=== PATIENT | female | born 1990 | race Caucasian/White ===

== ENCOUNTER 2016-12-02 22:00 | Emergency (ER) | payer OTHER ==
[2016-12-02 22:18] VITALS: BP 130/86; RESP 18; TEMP 98.2
[2016-12-02] MEDS ORDERED: ACET/COD 300 MG/30 MG STARTER PACK 6 TAB BTL PO STA (22:21)
--- NOTE | 2016-12-02 22:24 | ED ---
Animal Bite HPI - General Chief Complaint: Animal Bite Stated Complaint: Dog Bite Time Seen by Provider: 12/02/16 22:02 Source: patient, RN notes reviewed Mode of arrival: ambulatory Limitations: no limitations - History of Present Illness Initial Comments: 26-year-old female presents emergency Department chief complaint dog bite left thigh. Patient states his happened hours ago before she went to work. She states her small dog as she sees daily was walking by her own her and jumped up and bit her left thigh. Patient states that she did not believe there was no puncture wound she states her is just bruising noted. She states it is very sore and she tried some Aleve with no pain relief. Patient states that she has no other injuries. - Related Data Home Medications Medication Instructions Recorded Confirmed Biotin 2,500 mcg PO DAILY 12/02/16 12/02/16 Previous Rx's Medication Instructions Recorded Acetaminophen-Codeine 300-30mg 1 tab PO Q4H PRN #10 tablet 12/02/16 [Tylenol #3] Allergies Allergy/AdvReac Type Severity Reaction Status Date / Time sulfamethoxazole Allergy Rash/Hives, Verified 12/02/16 22:18 [From Bactrim] vomiting trimethoprim [From Bactrim] Allergy Rash/Hives, Verified 12/02/16 22:18 vomiting Review of Systems ROS Statement: Those systems with pertinent positive or pertinent negative responses have been documented in the HPI. ROS Other: All systems not noted in ROS Statement are negative. Past Medical History Past Medical History: Skin Disorder Additional Past Medical History / Comment(s): psoriasis, "lump left thigh" History of Any Multi-Drug Resistant Organisms: None Reported Past Surgical History: No Surgical Hx Reported Additional Past Surgical History / Comment(s): fatty tumor from leg removed, Past Anesthesia/Blood Transfusion Reactions: No Reported Reaction Past Psychological History: No Psychological Hx Reported Smoking Status: Never smoker Past Alcohol Use History: Occasional Past Drug Use History: None Reported - Past Family History Mother Family Medical History: No Reported History General Exam Limitations: no limitations General appearance: alert, in no apparent distress Respiratory exam: Present: normal lung sounds bilaterally. Absent: respiratory distress, wheezes, rales, rhonchi, stridor Cardiovascular Exam: Present: regular rate, normal rhythm, normal heart sounds. Absent: systolic murmur, diastolic murmur, rubs, gallop, clicks Back exam: Present: other (Left thigh there is to areas of ecchymosis noted and superficial red moran with no abrasions or breaks to the skin noted) Course Vital Signs 12/02/16 22:15 Temperature 98.2 F Pulse Rate 20 L Respiratory 18 Rate Blood Pressure 130/86 O2 Sat by Pulse 100 Oximetry Medical Decision Making - Medical Decision Making 26-year-old female presented emergency from for dog bite to left thigh. Patient has no open wounds. Patient does not need tetanus or rabies vaccines at this time. Disposition Clinical Impression: Dog bite Disposition: HOME SELF-CARE Condition: Stable Instructions: Animal Bite (ED) Additional Instructions: Please return to the Emergency Department if symptoms worsen or any other concerns. Prescriptions: Acetaminophen-Codeine 300-30mg [Tylenol #3] 1 tab PO Q4H PRN #10 tablet PRN Reason: pain Time of Disposition: 22:24
[2016-12-02 22:25] VITALS: PULSE 60
== END 2016-12-02 22:51 | disposition home or self-care (01) ==
LOC: EC 22:00
DX: S71.152A Open bite, left thigh, initial encounter (principal); Z79.899 Other long term (current) drug therapy; Z88.2 Allergy status to sulfonamides; W54.0XXA Bitten by dog, initial encounter; Y93.K1 Activity, walking an animal
CPT/HCPCS: 99283

== ENCOUNTER 2017-02-05 12:35 | Emergency (ER) | payer OTHER ==
[2017-02-05 13:32] LABS: Basophils % (A) 1 %; CH 31.1; CHCM 33.9; Eosinophils # (A) 0.3 k/uL (0-0.7); Eosinophils % (A) 3 %; HCT 40.6 % (34.0-46.0); HDW 2.12; HGB 13.3 gm/dL (11.4-16.0); Luc # (Auto) 0.15; Luc % (Auto) 2; Lymphocytes # (A) 1.7 k/uL (1.0-4.8); Lymphocytes % (A) 19 %; MCH 30.2 pg (25.0-35.0); MCHC 32.9 g/dL (31.0-37.0); Monocytes # (A) 0.5 k/uL (0-1.0); Monocytes % (A) 5 %; Neutrophils # (A) 6.5 k/uL (1.3-7.7); Neutrophils % (A) 71 %; RBC 4.42 m/uL (3.80-5.40); RDW 12.8 % (11.5-15.5); WBC 9.1 k/uL (3.8-10.6); WBC (Perox) 9.57
[2017-02-05 13:37] LABS: ALT 19 U/L (9-52); AST 35 U/L (14-36); Alkaline Phosphatase 41 U/L (38-126); Anion Gap 9 mmol/L; Blood Urea Nitrogen 10 mg/dL (7-17); Calcium 9.7 mg/dL (8.4-10.2); Carbon Dioxide 22 mmol/L (22-30); Chloride 110 mmol/L (98-107); Glucose 83 mg/dL (74-99); Non-African American GFR(MDRD) >60 (>60 ml/min/1.73 sqM); Sodium 141 mmol/L (137-145); Total Protein 7.1 g/dL (6.3-8.2)
[2017-02-05 13:38] LABS: INR 1.1 (<1.1); Prothrombin Time 10.9 sec (9.0-12.0)
[2017-02-05 13:54] LABS: HCG,Quantitative Serum 484.4 mIU/mL
--- NOTE | 2017-02-05 14:17 | ED ---
Extremity Problem HPI - General Chief complaint: Extremity Problem,Nontraumatic Stated complaint: Bruises on Legs Time Seen by Provider: 02/05/17 12:58 Source: patient Mode of arrival: ambulatory Limitations: no limitations - History of Present Illness Initial comments: Patient is a 26-year-old female presenting to the emergency department with complaints of bilateral leg bruising over the last 2 weeks and achiness from her knees down to her feet. Patient states she has a history of chronic back pain and has been taking Aleve for the last 6 months on a daily basis. Patient states that she stopped taking Aleve approximately 10 days ago. Patient states she felt lightheaded last week not today. Patient denies chills, fevers, nausea, vomiting, shortness of breath, chest pain, abdominal pain, dysuria, hematuria, urgency, melena, hematochezia. Patient denies trauma or injury. Patient denies any other medications. Patient denies recent illness. Patient denies recent antibiotic use. Patient's last menstrual period was January 05. - Related Data Home Medications Medication Instructions Recorded Confirmed Biotin 2,500 mcg PO DAILY 12/02/16 12/02/16 Previous Rx's Medication Instructions Recorded Acetaminophen-Codeine 300-30mg 1 tab PO Q4H PRN #10 tablet 12/02/16 [Tylenol #3] Koz-Apgz-Xbybd Acid 1 cap PO DAILY #30 cap 02/05/17 [-U Capsule (formulary)] Allergies Allergy/AdvReac Type Severity Reaction Status Date / Time sulfamethoxazole Allergy Rash/Hives, Verified 02/05/17 12:55 [From Bactrim] vomiting trimethoprim [From Bactrim] Allergy Rash/Hives, Verified 02/05/17 12:55 vomiting Review of Systems ROS Statement: Those systems with pertinent positive or pertinent negative responses have been documented in the HPI. ROS Other: All systems not noted in ROS Statement are negative. Past Medical History Past Medical History: Skin Disorder Additional Past Medical History / Comment(s): psoriasis, "lump left thigh" History of Any Multi-Drug Resistant Organisms: None Reported Past Surgical History: No Surgical Hx Reported Additional Past Surgical History / Comment(s): fatty tumor from leg removed, Past Anesthesia/Blood Transfusion Reactions: No Reported Reaction Past Psychological History: No Psychological Hx Reported Smoking Status: Never smoker Past Alcohol Use History: Occasional Past Drug Use History: None Reported - Past Family History Mother Family Medical History: No Reported History General Exam - General Exam Comments Initial Comments: GENERAL: Pt awake and alert, well-appearing, well-nourished, and in no acute distress. HEAD: Atraumatic, normocephalic. EYES: Pupils equal, round, and reactive to light, extraocular movements intact, sclera anicteric, conjunctiva are normal. ENT: Oropharynx clear without exudates. Moist mucous membranes. Tongue smooth, pink, no lesions, protrudes in midline. NECK:Normal range of motion, supple without lymphadenopathy or JVD. LUNGS: Breath sounds clear to auscultation bilaterally. No wheezes, rales, or rhonchi. HEART: Heart S1, S2, no S3 or S4. Regular rate and rhythm. No murmurs, rubs or gallops. ABDOMEN: Soft, nontender, nondistended, normoactive bowel sounds. No guarding, no rebound. No masses or organomegaly appreciated. MUSCULOSKELETAL: Normal ROM, no tenderness. Strength 5/5. EXTREMITIES: 2+ peripheral pulses. No edema, clubbing or cyanosis. No calf tenderness. NEUROLOGICAL: Pt oriented x 3. Cranial nerves II through XII grossly intact. Strength and sensation grossly intact. PSYCH: Normal mood, normal affect. SKIN: Warm, dry, intact. Multiple ecchymotic areas to bilateral lower extremities, old appearing. Limitations: no limitations Course Vital Signs 02/05/17 12:53 Temperature 98.9 F Pulse Rate 68 Respiratory 20 Rate Blood Pressure 109/61 O2 Sat by Pulse 99 Oximetry Medical Decision Making - Medical Decision Making Positive . Lab work with no evidence of abnormalities. Patient instructed to follow-up with [facility] and establish primary care physician. Patient instructed to return to the emergency department with any new or worsening symptoms. Patient agrees with treatment plan. Discharge instructions and return parameters reviewed. - Lab Data Result diagrams: 02/05/17 13:15 02/05/17 13:15 Lab Results 02/05/17 02/05/17 02/05/17 Range/Units 13:15 13:15 13:15 WBC 9.1 (3.8-10.6) k/uL RBC 4.42 (3.80-5.40) m/uL Hgb 13.3 (11.4-16.0) gm/dL Hct 40.6 (34.0-46.0) % MCV 92.0 (80.0-100.0) fL MCH 30.2 (25.0-35.0) pg MCHC 32.9 (31.0-37.0) g/dL RDW 12.8 (11.5-15.5) % Plt Count 207 (150-450) k/uL Neutrophils % 71 % Lymphocytes % 19 % Monocytes % 5 % Eosinophils % 3 % Basophils % 1 % Neutrophils # 6.5 (1.3-7.7) k/uL Lymphocytes # 1.7 (1.0-4.8) k/uL Monocytes # 0.5 (0-1.0) k/uL Eosinophils # 0.3 (0-0.7) k/uL Basophils # 0.0 (0-0.2) k/uL PT 10.9 (9.0-12.0) sec INR 1.1 (<1.1) Sodium 141 (137-145) mmol/L Potassium 4.0 (3.5-5.1) mmol/L Chloride 110 H (98-107) mmol/L Carbon Dioxide 22 (22-30) mmol/L Anion Gap 9 mmol/L BUN 10 (7-17) mg/dL Creatinine 0.61 (0.52-1.04) mg/dL Est GFR (MDRD) Af Amer >60 (>60 ml/min/1.73 sqM) Est GFR (MDRD) Non-Af >60 (>60 ml/min/1.73 sqM) Glucose 83 (74-99) mg/dL Calcium 9.7 (8.4-10.2) mg/dL Total Bilirubin 1.0 (0.2-1.3) mg/dL AST 35 (14-36) U/L ALT 19 (9-52) U/L Alkaline Phosphatase 41 (38-126) U/L Total Protein 7.1 (6.3-8.2) g/dL Albumin 4.2 (3.5-5.0) g/dL HCG, Quant 484.4 mIU/mL Disposition Clinical Impression: Disposition: HOME SELF-CARE Condition: Good Instructions: (ED) Additional Instructions: Stop Aleve. May take Tylenol as needed for back pain. Follow-up with Dr. Kuester for [facility]. Please return to the emergency department with any new or worsening symptoms. Prescriptions: Csn-Obeb-Vwyqm Acid [-U Capsule (formulary)] 1 cap PO DAILY # 30 cap Referrals: None,Stated [Primary Care Provider] - 1-2 days Time of Disposition: 14:17
[2017-02-05 14:31] VITALS: BP 110/70; PULSE 62; RESP 18; TEMP 98.7
== END 2017-02-05 14:30 | disposition home or self-care (01) ==
LOC: EC 12:35
DX: O99.89 Other specified diseases and conditions complicating pregnancy, childbirth and the puerperium (principal); G89.29 Other chronic pain; M54.9 Dorsalgia, unspecified; Z79.899 Other long term (current) drug therapy; Z88.2 Allergy status to sulfonamides; Z3A.00 Weeks of gestation of pregnancy not specified
CPT/HCPCS: 36415; 80053; 84702; 85025; 85610; 99283

== ENCOUNTER → 2017-04-24 | Outpatient (CLI) | payer OTHER ==
[2017-04-24 15:46] LABS: CH 31.5; CHCM 34.9; HCT 31.9 % (34.0-46.0); HDW 2.24; HGB 10.9 gm/dL (11.4-16.0); MCH 31.1 pg (25.0-35.0); MCHC 34.3 g/dL (31.0-37.0); MCV 90.6 fL (80.0-100.0); Mean Platelet Volume 7.4; RBC 3.52 m/uL (3.80-5.40); RDW 12.7 % (11.5-15.5)
[2017-04-24 15:52] LABS: Glucose 89 mg/dL (74-99); Non-African American GFR(MDRD) >60 (>60 ml/min/1.73 sqM)
[2017-04-24 16:23] LABS: Hepatitis B Surface Ag Index 0.05
[2017-04-25 01:28] LABS: Treponemal Ab Non-Reactive (Non-Reactive)
[2017-04-25 04:46] LABS: Toxoplasma Antibody (IgG) <3.0 IU/mL (<7.2)
== END | disposition home or self-care (01) ==
LOC: LABWHC1 14:50
PROVIDERS: ATTEND Obstetrics & Gynecology
DX: O26.811 Pregnancy related exhaustion and fatigue, first trimester (principal); Z3A.00 Weeks of gestation of pregnancy not specified
CPT/HCPCS: 36415; 82565; 82947; 85027; 86762; 86777; 86778; 86780; 86850; 86900; 86901; 87340; 87390

== ENCOUNTER → 2017-05-25 | Outpatient (CLI) | payer OTHER ==
[2017-05-26 09:16] LABS: Alpha Fetoprotein 53.6 ng/mL; B-HCG (M.O.M.) 0.79; Gestational Age (days) 1; Human Chorionic Gonadotropin 19.8 IU/mL; Inhibin A (M.O.M.) 1.62; Interpretation SeeBelow; Maternal Age at EDD (Yrs) 27; Smoker No; Unconjugated Estriol (M.O.M.) 0.54
== END | disposition home or self-care (01) ==
LOC: LABWHC1 09:50
PROVIDERS: ATTEND Obstetrics & Gynecology
DX: Z34.82 Encounter for supervision of other normal pregnancy, second trimester (principal)
CPT/HCPCS: 36415; 82105; 82677; 84702; 86336

== ENCOUNTER 2017-10-10 06:05 | Inpatient (IN) | payer OTHER ==
[2017-10-10] MEDS ORDERED: METHYLERGONOVINE 0.2 MG/ML 1 ML AMP IM PRN (06:20)
[2017-10-10] MEDS ORDERED: LIDOCAINE 1% (PF) 10 MG/ML (30 ML SDV) SQ PRN (06:20)
[2017-10-10] MEDS ORDERED: OXYTOCIN 10 UNIT/ML 1 ML VIAL IM PRN (06:20)
[2017-10-10] MEDS ORDERED: TERBUTALINE 1 MG/ML VIAL SQ PRN (06:20)
[2017-10-10] MEDS ORDERED: CARBOPROST TROMETHAMINE 250 MCG/ML 1 ML AMP IM PRN (06:20)
[2017-10-10] MEDS: LACTATED RINGERS 1,000 ML IV SCH ×2 (06:27→11:23)
[2017-10-10] MEDS ORDERED: OXYTOCIN 20 UNITS/1000 ML NS 1,000 ML IV SCH (06:30)
[2017-10-10 06:52] LABS: HCT 33.6 % (34.0-46.0); HGB 11.1 gm/dL (11.4-16.0); MCH 30.3 pg (25.0-35.0); MCHC 33.2 g/dL (31.0-37.0); MCV 91.3 fL (80.0-100.0); Mean Platelet Volume 7.4; Platelet Count 157 k/uL (150-450); RBC 3.68 m/uL (3.80-5.40); RDW 12.7 % (11.5-15.5); WBC 17.3 k/uL (3.8-10.6)
[2017-10-10 07:37] LABS: Band Neutrophils % 2 %; Eosinophils # (M) 0.35 k/uL (0-0.7); Lymphocytes # (M) 1.38 k/uL (1.0-4.8); Metamyelocytes # (M) 0.17 k/uL (0); Metamyelocytes % 1 %; Monocytes # (M) 1.04 k/uL (0-1.0); Myelocytes # (M) 0.35 k/uL (0); Myelocytes % 2 %; Neutrophils % (M) 81 %; Nucleated Red Blood Cells 0 /100 WBC (0-0); Total Cells Counted 200
[2017-10-10 07:40] LABS: Anisocytosis (M) Present; Poikilocytosis (M) Present; Polychromasia Present
[2017-10-10] MEDS ORDERED: BUTORPHANOL 1 MG/ML 1 ML VIAL IV PRN (09:07)
[2017-10-10] MEDS ORDERED: SODIUM CHLORIDE 0.9% 100 ML BAG ONE (11:07)
[2017-10-10] MEDS ORDERED: fentaNYL (PF) 50 MCG/ML 5 ML AMP ONE (11:07)
[2017-10-10] MEDS ORDERED: BUPIVACAINE (PF) 0.25% 30 ML VIAL ONE (11:07)
[2017-10-10] MEDS ORDERED: BUPIVACAINE (PF) 0.25% 25 ML, fentaNYL (PF) 200 MCG in SODIUM CHLORIDE 0.9% 71 ML EPIDURAL ONE (11:22)
[2017-10-10] MEDS ORDERED: diphenhydrAMINE 50 MG/ML 1 ML VIAL IVP PRN ×2 (17:37)
[2017-10-10] MEDS ORDERED: WITCH HAZEL 1 EACH MED..PAD TOPICAL PRN (17:37)
[2017-10-10] MEDS ORDERED: diphenhydrAMINE 50 MG CAP PO PRN (17:37)
[2017-10-10] MEDS ORDERED: SIMETHICONE 80 MG CHEWABLE PO PRN (17:37)
[2017-10-10] MEDS ORDERED: BENZOCAINE/MENTHOL SPRAY 1 GM/SPRAY AEROSOL TOPICAL PRN (17:37)
[2017-10-10] MEDS ORDERED: diphenhydrAMINE 25 MG CAP PO PRN (17:37)
[2017-10-10] MEDS ORDERED: ZOLPIDEM 5 MG TAB PO PRN (17:37)
[2017-10-10] MEDS ORDERED: IBUPROFEN 600 MG TAB PO PRN (17:37)
[2017-10-10] MEDS ORDERED: Acetaminophen-Codeine 300-30mg TAB PO PRN ×2 (17:37)
[2017-10-10] MEDS: ACETAMINOPHEN TAB 325 MG TAB PO PRN (17:44)
--- NOTE | 2017-10-10 18:07 | P.HPOB ---
History of Present Illness H&P Date: 10/10/17 Chief Complaint: Intrauterine at term: Induction of labor Patient is a 27-year-old at 39 weeks gestation arise for induction of labor. Her course has been generally unremarkable she is feeling well at this time. Pertinent labs did include A+ blood type Rh antibody negative, rubella immune, hepatitis B surface antigen RPR and HIV were all negative. She did pass her Glucola screen. On physical exam vital signs are stable and afebrile. Her regular, lungs clear, extremities without pain. Osteopathic exams unremarkable. She was dilated to 1/2 cm 80% effaced -3 station and artificial rupture membranes was performed with clear fluid noted. heart tones 140s and reactive. Assessment intrauterine at term. Plan expect spontaneous vaginal delivery. Past Medical History Past Medical History: Skin Disorder Additional Past Medical History / Comment(s): psoriasis, "lump left thigh" History of Any Multi-Drug Resistant Organisms: None Reported Past Surgical History: No Surgical Hx Reported Additional Past Surgical History / Comment(s): fatty tumor from leg removed, Past Anesthesia/Blood Transfusion Reactions: No Reported Reaction Past Psychological History: No Psychological Hx Reported Smoking Status: Never smoker Past Alcohol Use History: Occasional Past Drug Use History: None Reported - Past Family History Mother Family Medical History: No Reported History Medications and Allergies Home Medications Medication Instructions Recorded Confirmed Type Fjt-Fihz-Ueway Acid 1 cap PO DAILY #30 cap 02/05/17 10/10/17 Rx [-U Capsule (formulary)] Allergies Allergy/AdvReac Type Severity Reaction Status Date / Time sulfamethoxazole Allergy Rash/Hives, Verified 10/10/17 06:20 [From Bactrim] vomiting trimethoprim [From Bactrim] Allergy Rash/Hives, Verified 10/10/17 06:20 vomiting Exam Osteopathic Statement: *. No significant issues noted on an osteopathic structural exam other than those noted in the History and Physical/Consult. - Vital Signs Vital signs: Vital Signs Temp Pulse Resp BP Pulse Ox 10/10/17 16:00 98.7 F 84 16 113/67 10/10/17 14:27 98.1 F 97 18 105/65 10/10/17 13:57 100 17 115/66 10/10/17 13:27 86 18 106/61 10/10/17 13:12 97.8 F 88 17 108/68 99 10/10/17 12:57 82 18 101/55 10/10/17 12:42 86 18 101/55 10/10/17 12:27 102 H 18 108/53 99 10/10/17 06:22 97.0 F L 85 14 113/67 98 Intake and Output 10/10/17 10/10/17 10/10/17 06:59 14:59 22:59 Intake Total 17.65 Balance 17.65 Intake: Intake, IV Titration 17.65 Amount Oxytocin 20 Units/1000 ml 17.65 Ns 1,000 ml @ 1 MILLIUNIT/MIN 3 mls/hr IV .Q24H HEDY Rx#:[id number] Other: # Voids 0 1 Weight 57.606 kg Results Result Diagrams: 10/10/17 06:30 Abnormal Lab Results - Last 24 Hours (Table) 10/10/17 Range/Units 06:30 WBC 17.3 H (3.8-10.6) k/uL RBC 3.68 L (3.80-5.40) m/uL Hgb 11.1 L (11.4-16.0) gm/dL Hct 33.6 L (34.0-46.0) % Neutrophils # (Manual) 14.30 H (1.3-7.7) k/uL Monocytes # (Manual) 1.04 H (0-1.0) k/uL Metamyelocytes # (Man) 0.17 H (0) k/uL Myelocytes # (Manual) 0.35 H (0) k/uL
--- NOTE | 2017-10-10 18:08 | P.PROBDLV ---
Vaginal Delivery Note - . Vaginal Delivery Note: Patient progressed to complete and pushed with spontaneous vaginal delivery of a viable female over an intact perineum. Following delivery of the head anterior posterior shoulders were delivered with gentle downward upper traction followed by the remainder the baby. Baby was then placed on mother's abdomen where the mouth nares were bulb suctioned and the umbilical cord was allowed to pulsate for 30 seconds prior to clamping and cutting. Once this was accomplished nursery personnel was present to assume care. Placenta was then delivered intact and Pitocin was added to the IV. scores are 9 and 9 at one and 5 minutes respectively and the weight was 6 lbs. 12 oz. Both mother and baby are stable following delivery.
[2017-10-10] MEDS: SENNOSIDES-DOCUSATE SODIUM 1 EACH TAB PO SCH (21:36)
[2017-10-10 21:45] VITALS: RESP 18
[2017-10-11] MEDS: SENNOSIDES-DOCUSATE SODIUM 1 EACH TAB PO SCH (08:30)
[2017-10-11] MEDS: ACETAMINOPHEN TAB 325 MG TAB PO PRN (08:30)
[2017-10-11 08:53] VITALS: BP 106/71; PULSE 85; TEMP 98.5
--- NOTE | 2017-10-11 12:11 | P.DS ---
Providers Date of admission: 10/10/17 06:05 Expected date of discharge: 10/11/17 Attending physician: Angelito Rodriguez Primary care physician: Stated None Hospital Course: Patient is doing very well day 1. She is involuting, voiding, and she is tolerating her diet. She voices no complaints. Vital signs are stable and afebrile. Heart regular, lungs clear, extremities are without pain. She is stable for discharge and her is requesting same. She'll follow me in 6 weeks. Prescription for Motrin was sent to the pharmacy. All other questions are answered for her prior to her discharge and she is stable for discharge at this time. Patient Condition at Discharge: Good Plan - Discharge Summary New Discharge Prescriptions: New Ibuprofen [Motrin] 600 mg PO Q6HR PRN #30 tab PRN Reason: Pain No Action Gtv-Faxa-Ztyno Acid [-U Capsule (formulary)] 1 cap PO DAILY #30 cap Discharge Medication List Ztv-Kvee-Wfxow Acid [-U Capsule (formulary)] 1 cap PO DAILY # 30 cap 02/05/17 [Rx] Ibuprofen [Motrin] 600 mg PO Q6HR PRN #30 tab 10/11/17 [Rx] Follow up Appointment(s)/Referral(s): Aneglito Rodriguez DO [Doctor of Osteopathic Medicine] - 6 Weeks Activity/Diet/Wound Care/Special Instructions: No heavy lifting, limit stairs and driving and pelvic rest. If any high temperatures, heavy bleeding, or severe pain call my office Discharge Disposition: HOME SELF-CARE
== END 2017-10-11 13:44 | disposition home or self-care (01) | DRG 775 ==
LOC: 4FBP 06:05
PROVIDERS: ADMIT Obstetrics & Gynecology; ATTEND Obstetrics & Gynecology
PROC: 10E0XZZ Delivery of Products of Conception, External Approach (ICD-10-PCS; principal; 2017-10-10)
PROC: 10907ZC Drainage of Amniotic Fluid, Therapeutic from Products of Conception, Via Natural or Artificial Opening (ICD-10-PCS; 2017-10-10)
PROC: 3E0R3NZ Introduction of Analgesics, Hypnotics, Sedatives into Spinal Canal, Percutaneous Approach (ICD-10-PCS; 2017-10-10)
PROC: 00HU33Z Insertion of Infusion Device into Spinal Canal, Percutaneous Approach (ICD-10-PCS; 2017-10-10)
DX: O80 Encounter for full-term uncomplicated delivery (principal); Z37.0 Single live birth; Z3A.39 39 weeks gestation of pregnancy; Z88.2 Allergy status to sulfonamides
CPT/HCPCS: 85025; 88307

== ENCOUNTER 2017-12-15 09:35 | Emergency (ER) | payer OTHER ==
[2017-12-15 09:45] VITALS: RESP 16
[2017-12-15] MEDS ORDERED: SODIUM CHLORIDE 0.9% 1,000 ML IV STA (09:53)
[2017-12-15] MEDS ORDERED: diphenhydrAMINE 50 MG/ML 1 ML VIAL IVP STA (09:53)
[2017-12-15] MEDS ORDERED: METOCLOPRAMIDE 5 MG/ML 2 ML VIAL IVP STA (09:53)
--- NOTE | 2017-12-15 10:04 | ED ---
General Adult HPI - General Chief complaint: Eye Problems Stated complaint: Slurred speech and numbness Time Seen by Provider: 12/15/17 09:46 Source: patient, RN notes reviewed Mode of arrival: ambulatory Limitations: no limitations - History of Present Illness Initial comments: Patient 27-year-old female presented to the emergency room today with multiple complaints. She states that approximately one hour ago while at work she noticed that she was having some blurry vision mostly out of the left eye. 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 She's felt some numbness tingling in the left arm. She also admits to a pain behind the left eye. She describes it as sharp. Patient also admits that she felt like she was having a hard time with finding her words. Coworker at bedside states that she couldn't spell the word please. Patient does admit that the symptoms are improving still expresses some pain behind the left eye. She doesn't that she's had similar symptoms this is approximately the fourth episode that she's now had over the last several months that started when she was . Patient states symptoms usually last approximately 3 hours and then resolve. Patient denies any recent fever, chills, shortness of breath, chest pain, back pain, abdominal pain, nausea or vomiting,dysuria or hematuria, constipation or diarrhea, or any other complaints. - Related Data Home Medications Medication Instructions Recorded Confirmed Control (Unknown) 1 tab PO HS 12/15/17 12/15/17 Allergies Allergy/AdvReac Type Severity Reaction Status Date / Time sulfamethoxazole Allergy Rash/Hives, Verified 12/15/17 10:24 [From Bactrim] vomiting trimethoprim [From Bactrim] Allergy Rash/Hives, Verified 12/15/17 10:24 vomiting Review of Systems ROS Statement: Those systems with pertinent positive or pertinent negative responses have been documented in the HPI. ROS Other: All systems not noted in ROS Statement are negative. Past Medical History Past Medical History: Skin Disorder Additional Past Medical History / Comment(s): psoriasis, "lump left thigh" History of Any Multi-Drug Resistant Organisms: None Reported Past Surgical History: No Surgical Hx Reported Additional Past Surgical History / Comment(s): fatty tumor from leg removed, Past Anesthesia/Blood Transfusion Reactions: No Reported Reaction Past Psychological History: No Psychological Hx Reported Smoking Status: Never smoker Past Alcohol Use History: Occasional Past Drug Use History: None Reported - Past Family History Mother Family Medical History: No Reported History General Exam Limitations: no limitations Course Vital Signs 12/15/17 09:42 Temperature 97.9 F Pulse Rate 57 L Respiratory 16 Rate Blood Pressure 141/79 O2 Sat by Pulse 99 Oximetry Medical Decision Making - Medical Decision Making Patient reexamined at this time shows no signs of distress. She does admit that symptoms have improved here in the emergency room. States still some discomfort behind the left eye but much improved after medications. Patient was given Reglan, Benadryl. Patient labs been reviewed. Urinalysis shows 16 white cells. Patient denies any symptoms of dysuria or increased frequency. Urine culture has been added and is pending. Patient CT and CTA of the head is negative. Patient will be discharged to follow-up with family physician. Advised to return if any symptoms increase or worsen. She states understanding and is in agreement. - Lab Data Result diagrams: 12/15/17 10:00 12/15/17 10:00 Lab Results 12/15/17 12/15/17 12/15/17 Range/Units 10:00 10:00 10:00 WBC 5.8 (3.8-10.6) k/uL RBC 4.50 (3.80-5.40) m/uL Hgb 13.3 (11.4-16.0) gm/dL Hct 38.5 (34.0-46.0) % MCV 85.4 D (80.0-100.0) fL MCH 29.5 (25.0-35.0) pg MCHC 34.6 (31.0-37.0) g/dL RDW 12.7 (11.5-15.5) % Plt Count 222 (150-450) k/uL Neutrophils % 63 % Lymphocytes % 27 % Monocytes % 5 % Eosinophils % 3 % Basophils % 0 % Neutrophils # 3.6 (1.3-7.7) k/uL Lymphocytes # 1.6 (1.0-4.8) k/uL Monocytes # 0.3 (0-1.0) k/uL Eosinophils # 0.2 (0-0.7) k/uL Basophils # 0.0 (0-0.2) k/uL Sodium 141 (137-145) mmol/L Potassium 4.1 (3.5-5.1) mmol/L Chloride 109 H (98-107) mmol/L Carbon Dioxide 21 L (22-30) mmol/L Anion Gap 11 mmol/L BUN 6 L (7-17) mg/dL Creatinine 0.69 (0.52-1.04) mg/dL Est GFR (CKD-EPI)AfAm >90 (>60 ml/min/1.73 sqM) Est GFR (CKD-EPI)NonAf >90 (>60 ml/min/1.73 sqM) Glucose 87 (74-99) mg/dL Calcium 9.5 (8.4-10.2) mg/dL Total Bilirubin 0.7 (0.2-1.3) mg/dL AST 26 (14-36) U/L ALT 31 (9-52) U/L Alkaline Phosphatase 54 (38-126) U/L Total Protein 7.0 (6.3-8.2) g/dL Albumin 4.4 (3.5-5.0) g/dL Urine Color Urine Appearance (Clear) Urine pH (5.0-8.0) Ur Specific [place] (1.001-1.035) Urine Protein (Negative) Urine Glucose (UA) (Negative) Urine Ketones (Negative) Urine Blood (Negative) Urine Nitrite (Negative) Urine Bilirubin (Negative) Urine Urobilinogen (<2.0) mg/dL Ur Leukocyte Esterase (Negative) Urine RBC (0-5) /hpf Urine WBC (0-5) /hpf Ur Squamous Epith Cells (0-4) /hpf Urine Mucus (None) /hpf Urine HCG, Qual Not Detected (Not Detectd) 12/15/17 Range/Units 10:00 WBC (3.8-10.6) k/uL RBC (3.80-5.40) m/uL Hgb (11.4-16.0) gm/dL Hct (34.0-46.0) % MCV (80.0-100.0) fL MCH (25.0-35.0) pg MCHC (31.0-37.0) g/dL RDW (11.5-15.5) % Plt Count (150-450) k/uL Neutrophils % % Lymphocytes % % Monocytes % % Eosinophils % % Basophils % % Neutrophils # (1.3-7.7) k/uL Lymphocytes # (1.0-4.8) k/uL Monocytes # (0-1.0) k/uL Eosinophils # (0-0.7) k/uL Basophils # (0-0.2) k/uL Sodium (137-145) mmol/L Potassium (3.5-5.1) mmol/L Chloride (98-107) mmol/L Carbon Dioxide (22-30) mmol/L Anion Gap mmol/L BUN (7-17) mg/dL Creatinine (0.52-1.04) mg/dL Est GFR (CKD-EPI)AfAm (>60 ml/min/1.73 sqM) Est GFR (CKD-EPI)NonAf (>60 ml/min/1.73 sqM) Glucose (74-99) mg/dL Calcium (8.4-10.2) mg/dL Total Bilirubin (0.2-1.3) mg/dL AST (14-36) U/L ALT (9-52) U/L Alkaline Phosphatase (38-126) U/L Total Protein (6.3-8.2) g/dL Albumin (3.5-5.0) g/dL Urine Color Yellow Urine Appearance Cloudy H (Clear) Urine pH 6.5 (5.0-8.0) Ur Specific [place] 1.007 (1.001-1.035) Urine Protein Negative (Negative) Urine Glucose (UA) Negative (Negative) Urine Ketones Negative (Negative) Urine Blood Negative (Negative) Urine Nitrite Negative (Negative) Urine Bilirubin Negative (Negative) Urine Urobilinogen <2.0 (<2.0) mg/dL Ur Leukocyte Esterase Large H (Negative) Urine RBC 3 (0-5) /hpf Urine WBC 16 H (0-5) /hpf Ur Squamous Epith Cells 5 H (0-4) /hpf Urine Mucus Rare H (None) /hpf Urine HCG, Qual (Not Detectd) Disposition Clinical Impression: Headache Disposition: HOME SELF-CARE Condition: Good Instructions: Acute Headache (ED) Additional Instructions: Please use medication as discussed. Please follow-up with family doctor in the next 2 days of symptoms have not improved. Please return to emergency room if the symptoms increase or worsen or for any other concerns. Is patient prescribed a controlled substance at d/c from ED?: No Referrals: None,Stated [Primary Care Provider] - 1-2 days Kwadwo Ralph DO [STAFF PHYSICIAN] - 1-2 days Gael Tejada MD [REFERRING] - 1-2 days Time of Disposition: 12:25
[2017-12-15 10:22] LABS: Appearance,Urine Cloudy (Clear); Bilirubin,Urine Negative (Negative); Blood,Urine Negative (Negative); Color,Urine Yellow; Glucose,Urine (UA) Negative (Negative); Ketones,Urine Negative (Negative); Leukocyte Esterase,Urine Large (Negative); Mucus,Urine Rare /hpf; Nitrite,Urine Negative (Negative); PH, Urine 6.5 (5.0-8.0); Protein,Urine Negative (Negative); RBC,Urine 3 /hpf (0-5); Specific Gravity,Urine 1.007 (1.001-1.035); Squamous Epithelial Cell,Urine 5 /hpf (0-4); Urobilinogen,Urine <2.0 mg/dL (<2.0); WBC,Urine 16 /hpf (0-5)
[2017-12-15 10:23] LABS: Basophils % (A) 0 %; Eosinophils # (A) 0.2 k/uL (0-0.7); Eosinophils % (A) 3 %; HCT 38.5 % (34.0-46.0); HGB 13.3 gm/dL (11.4-16.0); Lymphocytes # (A) 1.6 k/uL (1.0-4.8); Lymphocytes % (A) 27 %; MCH 29.5 pg (25.0-35.0); MCHC 34.6 g/dL (31.0-37.0); Mean Platelet Volume 6.8; Monocytes # (A) 0.3 k/uL (0-1.0); Monocytes % (A) 5 %; Neutrophils # (A) 3.6 k/uL (1.3-7.7); Neutrophils % (A) 63 %; Platelet Count 222 k/uL (150-450); RDW 12.7 % (11.5-15.5); WBC 5.8 k/uL (3.8-10.6)
[2017-12-15 10:29] LABS: ALT 31 U/L (9-52); AST 26 U/L (14-36); Albumin 4.4 g/dL (3.5-5.0); Alkaline Phosphatase 54 U/L (38-126); Anion Gap 11 mmol/L; Blood Urea Nitrogen 6 mg/dL (7-17); Calcium 9.5 mg/dL (8.4-10.2); Carbon Dioxide 21 mmol/L (22-30); Chloride 109 mmol/L (98-107); Glucose 87 mg/dL (74-99); Potassium 4.1 mmol/L (3.5-5.1); Sodium 141 mmol/L (137-145); Total Bilirubin 0.7 mg/dL (0.2-1.3)
[2017-12-15 10:32] LABS: MCV 85.4 fL (80.0-100.0)
--- NOTE | 2017-12-15 11:11 | CT ---
EXAMINATION TYPE: CT brain wo con DATE OF EXAM: 12/15/2017 COMPARISON: NONE HISTORY: Vision changes, DERAS CT DLP: [address] of the brain was performed. The ventricles, basal cisterns and sulci overlying the cerebral convexities demonstrate a normal appe arance. There is no evidence for intracranial hemorrhage or sulcal effacement. No mass effects are seen. Osseous calvarium is intact. If symptoms persist consider MRI as clinically warranted. IMPRESSION: 1. No acute intracranial process is seen at this time.
[2017-12-15] MEDS ORDERED: RX INFO: IV CONTRAST WAS GIVEN 1 EACH MISC MISCELLANE PRN (11:20)
--- NOTE | 2017-12-15 12:16 | CT ---
EXAMINATION TYPE: CT angio head DATE OF EXAM: 12/15/2017 12:08 PM COMPARISON: NONE HISTORY: Blurred vision, pain behind Lt eye, DERAS rule out aneurysm CT DLP: 1036 mGycm Automated exposure control for dose reduction was used. TECHNIQUE: CTA Performed with IV Contrast, patient injected with 100 mL of Isovue 370. 3D reconstructed images are created on an independent workstation and reviewed.. FINDINGS: There is codominant vertebral basilar system. Vertebral arteries are patent to basilar junction. Ther e is no significant focal stenosis or aneurysmal change in the posterior circulation. There are hypop lastic posterior communicating arteries noted bilaterally. Images of the anterior circulation show patent anterior communicating artery. There is no significant focal stenosis or aneurysmal change identified. IMPRESSION: NO ANEURYSMAL CHANGE AT LEVEL OF THE [place].
[2017-12-15 12:51] VITALS: BP 102/57; PULSE 54; TEMP 98
== END 2017-12-15 12:50 | disposition home or self-care (01) ==
LOC: EC 09:35
DX: R51 Headache (principal); H53.8 Other visual disturbances; H57.12 Ocular pain, left eye; Z79.3 Long term (current) use of hormonal contraceptives; Z88.2 Allergy status to sulfonamides
CPT/HCPCS: 36415; 80053; 85025; 81001; 81025; 70496; 70450; 99284; 96374; 96375; 96361; J1200; J2765; Q9967

== ENCOUNTER 2021-02-06 10:23 | Emergency (ER) | payer OTHER ==
[2021-02-06 10:27] VITALS: BP 112/76; PULSE 74; RESP 18; TEMP 97.9
[2021-02-06] MEDS ORDERED: ORPHENADRINE 30 MG/ML 2 ML VIAL IM STA (10:43)
[2021-02-06] MEDS ORDERED: KETOROLAC 15 MG/ML 1 ML VIAL IM STA (10:43)
--- NOTE | 2021-02-06 10:46 | ED ---
General Adult HPI - General Chief complaint: Extremity Injury, Upper Stated complaint: Lt Shoulder/Neck Pain Time Seen by Provider: 02/06/21 10:28 Source: patient, RN notes reviewed Mode of arrival: ambulatory Limitations: no limitations - History of Present Illness Initial comments: Patient is a pleasant 30-year-old female presenting to the emergency Department with left upper back discomfort. Onset of symptoms was yesterday while turning and grabbing her shoulder region. Patient felt a pop and has had to give complicated discomfort since that time. Patient states discomfort is very positional. Patient states it helps to rotate her head to the right and hurts rotated towards the left. Patient also has discomfort with deep breaths. No dyspnea. No weakness. No history of chronic similar problems. Patient denies possible - Related Data Home Medications Medication Instructions Recorded Confirmed Control (Unknown) 1 tab PO HS 12/15/17 12/15/17 Previous Rx's Medication Instructions Recorded Cyclobenzaprine [Flexeril] 10 mg PO TID PRN #12 tablet 02/06/21 Allergies Allergy/AdvReac Type Severity Reaction Status Date / Time sulfamethoxazole Allergy Rash/Hives, Verified 02/06/21 10:27 [From Bactrim] vomiting trimethoprim [From Bactrim] Allergy Rash/Hives, Verified 02/06/21 10:27 vomiting Review of Systems ROS Statement: Those systems with pertinent positive or pertinent negative responses have been documented in the HPI. ROS Other: All systems not noted in ROS Statement are negative. Constitutional: Denies: fever Eyes: Denies: eye pain ENT: Denies: ear pain Respiratory: Reports: as per HPI. Denies: cough Cardiovascular: Reports: as per HPI Endocrine: Denies: fatigue Gastrointestinal: Denies: abdominal pain Genitourinary: Denies: dysuria Musculoskeletal: Reports: as per HPI, back pain Skin: Denies: rash Neurological: Denies: weakness Past Medical History Past Medical History: Skin Disorder Additional Past Medical History / Comment(s): psoriasis, "lump left thigh" History of Any Multi-Drug Resistant Organisms: None Reported Past Surgical History: No Surgical Hx Reported Additional Past Surgical History / Comment(s): fatty tumor from leg removed, Past Anesthesia/Blood Transfusion Reactions: No Reported Reaction Past Psychological History: No Psychological Hx Reported Smoking Status: Never smoker Past Alcohol Use History: None Reported Past Drug Use History: None Reported, Marijuana - Past Family History Mother Family Medical History: No Reported History General Exam Limitations: no limitations General appearance: alert, in no apparent distress Head exam: Present: normocephalic Eye exam: Present: normal appearance Neck exam: Present: normal inspection. Absent: tenderness Respiratory exam: Present: normal lung sounds bilaterally, chest wall tenderness (Patient does have some tenderness of the upper chest wall) Cardiovascular Exam: Present: regular rate, normal rhythm Expanded Peripheral pulses: 2+: Radial (L) GI/Abdominal exam: Present: soft. Absent: tenderness Extremities exam: Present: normal inspection Back exam: Present: tenderness (Tenderness and muscle fullness left upper trapezius region.), muscle spasm Neurological exam: Present: alert. Absent: motor sensory deficit Psychiatric exam: Present: normal affect, normal mood Skin exam: Present: normal color Course Vital Signs 02/06/21 10:23 Temperature 97.9 F Pulse Rate 74 Respiratory 18 Rate Blood Pressure 112/76 O2 Sat by Pulse 99 Oximetry Medical Decision Making - Medical Decision Making Patient reevaluated and feeling somewhat better with muscle relaxer. Patient updated on x-ray. Patient offered further medication but refuses. - Radiology Data Radiology results: image reviewed (Chest x-ray shows no acute process) Disposition Clinical Impression: Trapezius strain Disposition: HOME SELF-CARE Condition: Stable Instructions (If sedation given, give patient instructions): Thoracic Back Strain (ED) Additional Instructions: Prescription for muscle relaxers has been sent here pharmacy. Please do follow- up with primary care physician in the next couple days for recheck. You may use sling if needed for the next couple of days to rest your arm. Continue [id number] Motrin. Prescriptions: Cyclobenzaprine [Flexeril] 10 mg PO TID PRN #12 tablet PRN Reason: Pain Is patient prescribed a controlled substance at d/c from ED?: No Referrals: Edilson Castillo [STAFF PHYSICIAN] - 1-2 days Time of Disposition: 11:43
--- NOTE | 2021-02-06 11:07 | XR ---
EXAMINATION TYPE: XR chest 2V DATE OF EXAM: 02/06/2021 COMPARISON: 02/09/1611 0 cm with air primarily at 1250 HISTORY: Chest pain TECHNIQUE: Frontal and lateral views of the chest are obtained. FINDINGS: There is no focal air space opacity. No evidence for pneumothorax. No pleural effusion. The cardiac silhouette size is within normal limits. The osseous structures are grossly intact. IMPRESSION: 1. No acute cardiopulmonary process.
== END 2021-02-06 11:47 | disposition home or self-care (01) ==
LOC: EC 10:23
DX: S29.012A Strain of muscle and tendon of back wall of thorax, initial encounter (principal); X58.XXXA Exposure to other specified factors, initial encounter; Z88.1 Allergy status to other antibiotic agents; Z88.2 Allergy status to sulfonamides
CPT/HCPCS: 99283 ×2; 96372 ×3; 71046; J2360; J1885

== ENCOUNTER 2024-03-17 11:01 | Emergency (ER) | payer OTHER ==
[2024-03-17 11:07] VITALS: TEMP 98.7
[2024-03-17] MEDS: ONDANSETRON 4 MG/2 ML VIAL IVP STA (11:13)
[2024-03-17] MEDS: SODIUM CHLORIDE 0.9% 1,000 ML IV ONE (11:14)
[2024-03-17] MEDS: LORazepam 2 MG/ML INJ IV STA (11:14)
[2024-03-17] MEDS: SODIUM CHLORIDE 0.9% 500 ML 500 ML IV ONE (11:15)
--- NOTE | 2024-03-17 11:21 | ED ---
General Adult HPI - General Chief complaint: Abdominal Pain Stated complaint: NVD Time Seen by Provider: 03/17/24 11:05 Source: patient, RN notes reviewed, old records reviewed Mode of arrival: EMS - History of Present Illness Initial comments: This is a 33-year-old female who presents to the emergency department stating that she has been vomiting since 6 AM this morning because she cannot stop vomiting. Patient states she was drinking too much last night and she normally does not drink. Patient also complains of some lower back pain from retching so much. Patient denies any actual specific abdominal pain. Patient denies any fever chills per patient Nuys any diarrhea. Patient Nuys chest pain difficulty breathing or shortness of breath. - Related Data Home Medications Medication Instructions Recorded Confirmed Control (Unknown) 1 tab PO HS 12/15/17 12/15/17 Previous Rx's Medication Instructions Recorded Cyclobenzaprine [Flexeril] 10 mg PO TID PRN #12 tablet 02/06/21 Allergies Allergy/AdvReac Type Severity Reaction Status Date / Time sulfamethoxazole Allergy Rash/Hives, Verified 03/17/24 11:07 [From Bactrim] vomiting trimethoprim [From Bactrim] Allergy Rash/Hives, Verified 03/17/24 11:07 vomiting Review of Systems ROS Statement: Those systems with pertinent positive or pertinent negative responses have been documented in the HPI. ROS Other: All systems not noted in ROS Statement are negative. Past Medical History Past Medical History: Skin Disorder Additional Past Medical History / Comment(s): psoriasis, "lump left thigh" History of Any Multi-Drug Resistant Organisms: None Reported Past Surgical History: No Surgical Hx Reported Additional Past Surgical History / Comment(s): fatty tumor from leg removed, Past Anesthesia/Blood Transfusion Reactions: No Reported Reaction Past Psychological History: No Psychological Hx Reported Smoking Status: Never smoker Past Alcohol Use History: None Reported, Occasional Past Drug Use History: None Reported, Marijuana - Past Family History Mother Family Medical History: No Reported History General Exam - General Exam Comments Initial Comments: GENERAL: Patient is well-developed and well-nourished. Patient is nontoxic and well- hydrated and is in moderate distress. Patient is actively vomiting ENT: Neck is soft and supple. No significant lymphadenopathy is noted. Oropharynx is clear. Moist mucous membranes. Neck has full range of motion without eliciting any pain. EYES: The sclera were anicteric and conjunctiva were pink and moist. Extraocular movements were intact and pupils were equal round and reactive to light. Eyelids were unremarkable. PULMONARY: Unlabored respirations. Good breath sounds bilaterally. No audible rales rhonchi or wheezing was noted. CARDIOVASCULAR: There is a regular rate and rhythm without any murmurs gallops or rubs. ABDOMEN: Soft and nontender with normal bowel sounds. SKIN: Skin is clear with no lesions or rashes and otherwise unremarkable. NEUROLOGIC: Patient is alert and oriented x3. Cranial nerves II through XII are grossly intact. Motor and sensory are also intact. Normal speech, volume and content. Symmetrical smile. MUSCULOSKELETAL: Normal extremities with adequate strength and full range of motion. No lower extremity swelling or edema. No calf tenderness. Patient's back is tender bilaterally in the lower paraspinous muscle region LYMPHATICS: No significant lymphadenopathy is noted PSYCHIATRIC: Normal psychiatric evaluation. Course Vital Signs 03/17/24 11:03 Temperature 98.7 F Pulse Rate 58 L Respiratory 20 Rate Blood Pressure 156/37 O2 Sat by Pulse 96 Oximetry Medical Decision Making - Medical Decision Making Was pt. sent in by a medical professional or institution (, PA, EVENING SITTER, urgent care, hospital, or jail...) When possible be specific @ -No Did you speak to anyone other than the patient for history (EMS, parent, family, police, friend...)? What history was obtained from this source @ -No Did you review nursing and triage notes (agree or disagree)? Why? @ -I reviewed and agree with nursing and triage notes Were old charts reviewed (outside hosp., previous admission, EMS record, old EKG, old radiological studies, urgent care reports/EKG's, jail records)? Report findings @ -No old charts were reviewed Differential Diagnosis? @ -Differential Abdominal Pain Women: Appendicitis, Cholecystitis, diverticulosis, ischemic bowel, pancreatitis, hepatitis, UTI, gastroenteritis, AAA, incarcerated hernia, bowel obstruction, constipation, inflammatory bowel, hepatitis, peptic ulcer disease, splenic infarction, perforated viscus, vulvitis, ovarian torsion, PID, kidney stone, placenta abruption, this is not meant to be an all-inclusive list EKG interpreted by me (3pts min.). @ -As above X-rays interpreted by me (1pt min.). @ -None done CT interpreted by me (1pt min.). @ -None done U/S interpreted by me (1pt. min.). @ -None done What testing was considered but not performed or refused? (CT, X-rays, U/S, labs)? Why? @ -None What meds were considered but not given or refused? Why? @ -None Did you discuss the management of the patient with other professionals (professionals i.e. DrPietro, PA, EVENING SITTER, lab, RT, psych nurse, manager social responsibility, reading intervention teacher, teacher, public relations officer, case management coordinator)? Give summary @ -No Was smoking cessation discussed for >3mins.? @ -No Was critical care preformed (if so, how long)? @ -No Were there social determinants of health that impacted care today? How? (Jese elessness, low income, unemployed, alcoholism, drug addiction, transportation, low edu. Level, literacy, decrease access to med. care, long-term, rehab)? @ -No Was there de-escalation of care discussed even if they declined (Discuss DNR or withdrawal of care, Hospice)? DNR status @ -No What co-morbidities impacted this encounter? (DM, HTN, Smoking, COPD, CAD, Cancer, CVA, ARF, Chemo, Hep., AIDS, mental health diagnosis, sleep apnea, morbid obesity)? @ -None Was patient admitted / discharged? Hospital course, mention meds given and route, prescriptions, significant lab abnormalities, going to OR and other pertinent info. @ -Patient came in vomiting and very hysterical. Patient was given Ativan Zo elissa saline and Ofirmev I went back and reevaluated the patient she was feeling much better. Her labs came back and showed a low magnesium she was given 1 g of magnesium sulfate IV. Patient was also given Toradol because she was still feeling crampy. I reexamined the abdomen on 2 different occasions that she had no abdominal pain. Undiagnosed new problem with uncertain prognosis? @ -No Drug Therapy requiring intensive monitoring for toxicity (Heparin, Nitro, Insulin, Cardizem)? @ -No Were any procedures done? @ -No Diagnosis/spmptom? @ -Hangover Acute, or Chronic, or Acute on Chronic? @ -Acute Uncomplicated (without systemic symptoms) or Complicated (systemic symptoms)? @ -Complicated Side effects of treatment? @ -No Exacerbation, Progression, or Severe Exacerbation? @ -No Poses a threat to life or bodily function? How? (Chest pain, [place], [place], pneumonia, PE, COPD, DKA, ARF, appy, cholecystitis, CVA, Diverticulitis, Homicidal, Suicidal, threat to staff... and all critical care pts) @ -No - Lab Data Result diagrams: 03/17/24 12:22 03/17/24 12:22 Lab Results 03/17/24 03/17/24 Range/Units 12:22 12:22 WBC 14.2 H (3.8-10.6) k/uL RBC 3.60 L (3.80-5.40) m/uL Hgb 10.9 L (11.4-16.0) gm/dL Hct 32.5 L (34.0-46.0) % MCV 90.5 (80.0-100.0) fL MCH 30.3 (25.0-35.0) pg MCHC 33.5 (31.0-37.0) g/dL RDW 12.2 (11.5-15.5) % Plt Count 199 (150-450) k/uL MPV 7.7 Neutrophils % 92 % Lymphocytes % 3 % Monocytes % 4 % Eosinophils % 1 % Basophils % 0 % Neutrophils # 13.0 H (1.3-7.7) k/uL Lymphocytes # 0.5 L (1.0-4.8) k/uL Monocytes # 0.5 (0-1.0) k/uL Eosinophils # 0.1 (0-0.7) k/uL Basophils # 0.0 (0-0.2) k/uL Sodium 139 (137-145) mmol/L Potassium 4.3 (3.5-5.1) mmol/L Chloride 118 H (98-107) mmol/L Carbon Dioxide 14 L (22-30) mmol/L Anion Gap 7 mmol/L BUN 10 (7-17) mg/dL Creatinine 0.46 L (0.52-1.04) mg/dL Est GFR (CKD-EPI)AfAm >90 (>60 ml/min/1.73 sqM) Est GFR (CKD-EPI)NonAf >90 (>60 ml/min/1.73 sqM) Glucose 98 (74-99) mg/dL Calcium 7.8 L (8.4-10.2) mg/dL Magnesium 1.4 L (1.6-2.3) mg/dL Total Bilirubin 1.2 (0.2-1.3) mg/dL AST 29 (14-36) U/L ALT 17 (4-34) U/L Alkaline Phosphatase 40 (38-126) U/L Total Protein 5.7 L (6.3-8.2) g/dL Albumin 3.5 (3.5-5.0) g/dL Serum Alcohol <10 mg/dL Disposition Clinical Impression: Alcohol abuse, Hangover Disposition: HOME SELF-CARE Condition: Good Additional Instructions: Patient should hydrate is much as possible. Patient should take Zofran every 6 hours as needed for nausea. Patient can take Tylenol as needed for pain Is patient prescribed a controlled substance at d/c from ED?: No Referrals: Pau Hogue MD [Primary Care Provider] - 1-2 days Time of Disposition: 14:36
[2024-03-17] MEDS: ACETAMINOPHEN IV (For NPO) 1,000 MG in EMPTY BAG 1 BAG IVPB STA (11:47)
[2024-03-17 12:45] LABS: ALT 17 U/L (4-34); African American GFR (CKD) >90 (>60 ml/min/1.73 sqM); Albumin 3.5 g/dL (3.5-5.0); Alcohol <10 mg/dL; Anion Gap 7 mmol/L; Blood Urea Nitrogen 10 mg/dL (7-17); Calcium 7.8 mg/dL (8.4-10.2); Carbon Dioxide 14 mmol/L (22-30); Chloride 118 mmol/L (98-107); Glucose 98 mg/dL (74-99); Non-African American GFR(CKD) >90 (>60 ml/min/1.73 sqM); Sodium 139 mmol/L (137-145); Total Bilirubin 1.2 mg/dL (0.2-1.3); Total Protein 5.7 g/dL (6.3-8.2)
[2024-03-17 12:46] LABS: Basophils % (A) 0 %; Eosinophils # (A) 0.1 k/uL (0-0.7); Eosinophils % (A) 1 %; HCT 32.5 % (34.0-46.0); HGB 10.9 gm/dL (11.4-16.0); Lymphocytes # (A) 0.5 k/uL (1.0-4.8); Lymphocytes % (A) 3 %; MCH 30.3 pg (25.0-35.0); MCHC 33.5 g/dL (31.0-37.0); MCV 90.5 fL (80.0-100.0); Mean Platelet Volume 7.7; Monocytes # (A) 0.5 k/uL (0-1.0); Monocytes % (A) 4 %; Neutrophils % (A) 92 %; Platelet Count 199 k/uL (150-450); RDW 12.2 % (11.5-15.5); WBC 14.2 k/uL (3.8-10.6)
[2024-03-17 13:21] LABS: Magnesium 1.4 mg/dL (1.6-2.3); Potassium 4.3 mmol/L (3.5-5.1)
[2024-03-17 13:22] LABS: AST 29 U/L (14-36); Alkaline Phosphatase 40 U/L (38-126)
[2024-03-17] MEDS: MAGNESIUM SULFATE-D5W PMX 1 GM in DEXTROSE/WATER 1 100ML.BAG IVPB ONE (14:16)
[2024-03-17] MEDS: KETOROLAC 15 MG/ML 1 ML VIAL IVP STA (14:49)
[2024-03-17 15:56] VITALS: BP 122/60; PULSE 89; RESP 16
== END 2024-03-17 15:56 | disposition home or self-care (01) ==
LOC: EC 11:01
DX: F10.129 Alcohol abuse with intoxication, unspecified (principal); Z88.1 Allergy status to other antibiotic agents; Z88.2 Allergy status to sulfonamides
CPT/HCPCS: 36415; 80053; 80320; 83735; 85025; 96361; 96365; 96367; 96375; 99284